=== PATIENT | male | born 1975 | race Caucasian/White ===

== ENCOUNTER 2023-11-13 09:22 | Inpatient (IN) ==
[2023-11-13] MEDS ORDERED: IOPAMIDOL 100 ML BOTTLE IV ONE (09:23)
[2023-11-13] MEDS ORDERED: IPRATROPIUM/ALBUTEROL 3 ML AMPUL.NEB NEB ONE (09:30)
[2023-11-13] MEDS ORDERED: methylPREDNISolone SOD SUCC 125 MG/2 ML VIAL IV ONE (09:32)
[2023-11-13 09:47] LABS: POC Calcium, Ionized 1.07 (1.16-1.32); POC Creatinine 1.5 (0.6-1.2); POC Potassium 4.6 (3.3-5.1)
[2023-11-13 10:08] LABS: Basophils # (Auto) 0.12 K/mcL (0.00-0.30); Basophils % (Auto) 0.7 % (0.0-2.0); Eosinophils # (Auto) 0.57 K/mcL (0.00-0.70); Eosinophils % (Auto) 3.3 % (0.0-7.0); Hematocrit 54.2 % (40.1-51.0); Hemoglobin 17.1 g/dL (13.7-17.5); Lymphocytes # (Auto) 2.72 K/mcL (1.50-4.80); Lymphocytes % (Auto) 15.5 % (15.5-49.0); Mean Cell Volume 88.1 fL (80.0-100.0); Mean Corpuscular HGB Conc 31.5 g/dL (31.0-36.0); Mean Platelet Volume 10.8 fL (8.8-12.5); Monocytes # (Auto) 0.86 K/mcL (0.10-0.90); Monocytes % (Auto) 4.9 % (1.0-12.0); Platelet Count 329 K/mcL (140-440); RBC 6.15 M/mcL (4.63-6.08); Red Cell Distribution Width 15.2 % (11.5-14.5); WBC 17.5 K/mcL (4.5-11.0)
[2023-11-13 10:50] LABS: ALT/SGPT 11 U/L (<40); AST/SGOT 27 U/L (<40); Albumin 3.9 gm/dL (3.2-5.2); Alkaline Phosphatase 111 U/L (39-117); Bilirubin,Direct 0.3 mg/dL (<0.3); Bilirubin,Total 0.9 mg/dL (0.1-1.0); Globulin 4.8 gm/dL (2.2-3.7)
[2023-11-13] MEDS ORDERED: LEVOFLOXACIN 750 MG/150 ML BAG IV ONE (13:00)
[2023-11-13 16:52] LABS: Appearance,Urine CLEAR (Clear); Bilirubin,Urine NEGATIVE (Negative); Color,Urine YELLOW; Culture Indicated,Urine No; Glucose,Urine (UA) NEGATIVE (Negative); Ketones,Urine TRACE mg/dL (Negative); Leukocyte Esterase,Urine NEGATIVE /uL (Negative); Nitrate,Urine NEGATIVE (Negative); PH,Urine 6.5 (5.0-9.0); Protein,Urine TRACE mg/dL (Negative); Specific Gravity,Urine <= 1.005 (1.000-1.035); Urine Blood NEGATIVE ery/mcL (Negative); Urine RBC 2 /hpf (0-3); Urine Squamous Epithelial Cell 1 /hpf (0-4); Urine WBC 1 /hpf (0-4); Urobilinogen,Urine Normal
[2023-11-13] MEDS ORDERED: BUPROPION 200 MG PO ONE (17:53)
[2023-11-13] MEDS ORDERED: MAGNESIUM SULFATE 2 GM/50 ML BAG IV PRN (20:40)
[2023-11-13] MEDS ORDERED: ONDANSETRON 4 MG/2 ML VIAL IV PRN (20:40)
[2023-11-13] MEDS ORDERED: 0.9 % SODIUM CHLORIDE 1,000 ML IV SCH (20:40)
[2023-11-13] MEDS ORDERED: SENNOSIDES 1 TABLET PO PRN (20:40)
[2023-11-13] MEDS ORDERED: IPRATROPIUM/ALBUTEROL 3 ML AMPUL.NEB NEB PRN (20:40)
[2023-11-13] MEDS ORDERED: POLYETHYLENE GLYCOL 3350 17 GM PACKET PO PRN (20:40)
[2023-11-13] MEDS ORDERED: POTASSIUM CHLORIDE 20 MEQ TABLET PO PRN ×2 (20:40)
[2023-11-13] MEDS ORDERED: POTASSIUM CHLORIDE 40 MEQ in DEXTROSE 5% IN WATER 500 ML IV PRN (20:40)
[2023-11-13] MEDS: BUDESONIDE 0.5 MG/2 ML AMPUL.NEB NEB SCH (22:06)
[2023-11-13] MEDS: CEFEPIME 2 GM VIAL IV SCH (22:14)
[2023-11-13] MEDS: methylPREDNISolone SOD SUCC 125 MG/2 ML VIAL IV SCH (22:17)
[2023-11-13] MEDS: FAMOTIDINE 20 MG TABLET PO SCH (22:17)
[2023-11-13] MEDS: DOCUSATE SODIUM 100 MG CAPSULE PO SCH (22:17)
[2023-11-13 22:23] LABS: Anisocytosis 1+ (None Seen); Band Neutrophils % 1 % (0-10); Basophils % (Manual) 1 % (0-2); Eosinophils % (Manual) 8 % (0-7); Lymphocytes % 20 % (15-49); Monocytes % (Manual) 4 % (1-12); Platelet Estimate NORMAL (Normal); RBC Morphology ABNORMAL (Normal); Segmented Neutrophils % 66 % (38-78)
[2023-11-13] MEDS: AZITHROMYCIN 500 MG in DEXTROSE 5% IN WATER 250 ML IV SCH (22:47)
[2023-11-14] MEDS: IPRATROPIUM/ALBUTEROL 3 ML AMPUL.NEB NEB SCH ×4 (01:19→19:44)
[2023-11-14] MEDS: ACETAMINOPHEN 325 MG TABLET PO PRN ×2 (01:58→14:15)
[2023-11-14] MEDS: methylPREDNISolone SOD SUCC 125 MG/2 ML VIAL IV SCH ×3 (05:39→22:11)
[2023-11-14 06:59] LABS: ALT/SGPT 5 U/L (<40); AST/SGOT 23 U/L (<40); Albumin/Globulin Ratio 0.8 (1.0-2.3); Alkaline Phosphatase 82 U/L (39-117); Bilirubin,Direct < 0.2 mg/dL (0-0.3); Bilirubin,Total 0.4 mg/dL (0.1-1.0); Blood Urea Nitrogen 18 mg/dL (6-20); Calcium 8.9 mg/dL (8.6-10.4); Carbon Dioxide 21 mmol/L (22-30); Chloride 101 mmol/L (96-108); Globulin 3.8 gm/dL (2.2-3.7); Glomerular Filtration Rate 92; Glucose 179 mg/dL (70-105); Lactate Dehydrogenase 315 U/L (135-225); Triglycerides 90 mg/dL (<150); Uric Acid 7.8 mg/dL (2.5-8.0)
[2023-11-14 07:32] LABS: Basophils # (Auto) 0.03 K/mcL (0.00-0.30); Basophils % (Auto) 0.2 % (0.0-2.0); Eosinophils # (Auto) 0 K/mcL (0.00-0.70); Eosinophils % (Auto) 0 % (0.0-7.0); Hematocrit 45.4 % (40.1-51.0); Hemoglobin 14.3 g/dL (13.7-17.5); Lymphocytes # (Auto) 0.94 K/mcL (1.50-4.80); Lymphocytes % (Auto) 6.8 % (15.5-49.0); Mean Corpuscular HGB Conc 31.5 g/dL (31.0-36.0); Mean Platelet Volume 10.6 fL (8.8-12.5); Monocytes # (Auto) 0.37 K/mcL (0.10-0.90); Monocytes % (Auto) 2.7 % (1.0-12.0); Neutrophils % (Auto) 89.8 % (38.0-78.0); Platelet Count 262 K/mcL (140-440); Red Cell Distribution Width 14.5 % (11.5-14.5); WBC 13.8 K/mcL (4.5-11.0)
[2023-11-14] MEDS ORDERED: HYDROcodone/APAP 10/325MG TABLET PO PRN (07:42)
[2023-11-14] MEDS: CEFEPIME 2 GM VIAL IV SCH ×2 (08:04→20:32)
[2023-11-14] MEDS: FAMOTIDINE 20 MG TABLET PO SCH ×2 (08:11→20:32)
[2023-11-14] MEDS: buPROPion 100 MG TAB.SR.12H PO SCH ×3 (08:11→20:32)
[2023-11-14] MEDS: ENOXAPARIN 40 MG/0.4 ML SYRINGE SQ SCH (08:11)
[2023-11-14] MEDS: DOCUSATE SODIUM 100 MG CAPSULE PO SCH ×2 (08:11→20:32)
[2023-11-14] MEDS: BUDESONIDE 0.5 MG/2 ML AMPUL.NEB NEB SCH ×2 (08:25→19:43)
[2023-11-14] MEDS ORDERED: TADALAFIL 2.5 MG PO SCH (09:00)
[2023-11-14] MEDS ORDERED: VANCOMYCIN PER PHARMACY IV SCH (11:19)
[2023-11-14] MEDS: VANCOMYCIN 1,250 MG in 0.9 % SODIUM CHLORIDE 500 ML IV SCH ×2 (11:57→23:30)
[2023-11-14] MEDS: AZITHROMYCIN 500 MG in DEXTROSE 5% IN WATER 250 ML IV SCH (13:54)
[2023-11-14] MEDS: ATENOLOL 50 MG TABLET PO SCH (23:30)
[2023-11-15] MEDS: IPRATROPIUM/ALBUTEROL 3 ML AMPUL.NEB NEB SCH ×4 (01:00→19:15)
[2023-11-15] MEDS: ACETAMINOPHEN 325 MG TABLET PO PRN ×2 (03:56→11:59)
[2023-11-15] MEDS: methylPREDNISolone SOD SUCC 125 MG/2 ML VIAL IV SCH ×2 (05:11→14:10)
[2023-11-15 05:56] LABS: C-Reactive Protein 3.88 mg/dL (0.03-0.80)
[2023-11-15 06:46] LABS: Basophils # (Auto) 0.02 K/mcL (0.00-0.30); Basophils % (Auto) 0.1 % (0.0-2.0); Eosinophils # (Auto) 0 K/mcL (0.00-0.70); Eosinophils % (Auto) 0 % (0.0-7.0); Hematocrit 45.3 % (40.1-51.0); Hemoglobin 14.1 g/dL (13.7-17.5); Lymphocytes # (Auto) 0.87 K/mcL (1.50-4.80); Lymphocytes % (Auto) 5.8 % (15.5-49.0); Mean Cell Volume 89.9 fL (80.0-100.0); Mean Corpuscular HGB Conc 31.1 g/dL (31.0-36.0); Mean Platelet Volume 10.5 fL (8.8-12.5); Monocytes # (Auto) 0.65 K/mcL (0.10-0.90); Monocytes % (Auto) 4.3 % (1.0-12.0); Neutrophils % (Auto) 89.3 % (38.0-78.0); Platelet Count 251 K/mcL (140-440); RBC 5.04 M/mcL (4.63-6.08); Red Cell Distribution Width 14.7 % (11.5-14.5); WBC 15.1 K/mcL (4.5-11.0)
[2023-11-15] MEDS: BUDESONIDE 0.5 MG/2 ML AMPUL.NEB NEB SCH ×2 (06:53→19:15)
[2023-11-15] MEDS: CEFEPIME 2 GM VIAL IV SCH ×2 (08:13→20:46)
[2023-11-15] MEDS: ENOXAPARIN 40 MG/0.4 ML SYRINGE SQ SCH (08:13)
[2023-11-15] MEDS: DOCUSATE SODIUM 100 MG CAPSULE PO SCH ×2 (08:13→20:42)
[2023-11-15] MEDS: buPROPion 100 MG TAB.SR.12H PO SCH ×3 (08:14→20:43)
[2023-11-15] MEDS: FAMOTIDINE 20 MG TABLET PO SCH ×3 (08:14→20:46)
[2023-11-15] MEDS ORDERED: FUROSEMIDE 20 MG/2 ML VIAL IV SCH ×2 (10:16→17:00)
[2023-11-15] MEDS: AZITHROMYCIN 500 MG in DEXTROSE 5% IN WATER 250 ML IV SCH (10:55)
[2023-11-15] MEDS: VANCOMYCIN 1,250 MG in 0.9 % SODIUM CHLORIDE 500 ML IV SCH (12:07)
[2023-11-15] MEDS: ATENOLOL 50 MG TABLET PO SCH (23:46)
[2023-11-16] MEDS: IPRATROPIUM/ALBUTEROL 3 ML AMPUL.NEB NEB SCH ×4 (01:21→17:47)
[2023-11-16] MEDS: BUDESONIDE 0.5 MG/2 ML AMPUL.NEB NEB SCH ×2 (06:30→17:48)
[2023-11-16 07:33] LABS: Basophils # (Auto) 0.01 K/mcL (0.00-0.30); Basophils % (Auto) 0.1 % (0.0-2.0); Eosinophils # (Auto) 0 K/mcL (0.00-0.70); Eosinophils % (Auto) 0 % (0.0-7.0); Hematocrit 43.9 % (40.1-51.0); Hemoglobin 13.7 g/dL (13.7-17.5); Lymphocytes # (Auto) 0.97 K/mcL (1.50-4.80); Lymphocytes % (Auto) 8.8 % (15.5-49.0); Mean Cell Volume 89.4 fL (80.0-100.0); Mean Corpuscular HGB Conc 31.2 g/dL (31.0-36.0); Mean Platelet Volume 10.2 fL (8.8-12.5); Monocytes # (Auto) 0.54 K/mcL (0.10-0.90); Monocytes % (Auto) 4.9 % (1.0-12.0); Neutrophils % (Auto) 85.7 % (38.0-78.0); Platelet Count 252 K/mcL (140-440); RBC 4.91 M/mcL (4.63-6.08); Red Cell Distribution Width 15.1 % (11.5-14.5); WBC 11.1 K/mcL (4.5-11.0)
[2023-11-16 08:03] LABS: ALT/SGPT 19 U/L (<40); AST/SGOT 30 U/L (<40); Albumin 3.4 gm/dL (3.2-5.2); Alkaline Phosphatase 87 U/L (39-117); Anion Gap 7.5 (8.0-16.0); Bilirubin,Direct < 0.2 mg/dL (0-0.3); Bilirubin,Total 0.5 mg/dL (0.1-1.0); Blood Urea Nitrogen 21 mg/dL (6-20); Calcium 9.1 mg/dL (8.6-10.4); Carbon Dioxide 30 mmol/L (22-30); Chloride 99 mmol/L (96-108); Globulin 3.3 gm/dL (2.2-3.7); Glomerular Filtration Rate 102; Glucose 150 mg/dL (70-105); Lactate Dehydrogenase 370 U/L (135-225); Phosphorous 3.6 mg/dL (2.5-4.5); Triglycerides 100 mg/dL (<150)
[2023-11-16] MEDS: DOCUSATE SODIUM 100 MG CAPSULE PO SCH ×2 (10:07→20:02)
[2023-11-16] MEDS: FAMOTIDINE 20 MG TABLET PO SCH ×2 (10:23→20:02)
[2023-11-16] MEDS: buPROPion 100 MG TAB.SR.12H PO SCH ×2 (10:30→20:02)
[2023-11-16] MEDS: CEFEPIME 2 GM VIAL IV SCH ×2 (10:30→21:20)
[2023-11-16] MEDS: ENOXAPARIN 40 MG/0.4 ML SYRINGE SQ SCH (10:31)
[2023-11-16] MEDS: ACETAMINOPHEN 325 MG TABLET PO PRN ×2 (10:33→20:01)
[2023-11-16] MEDS ORDERED: DIAZEPAM 5 MG TABLET PO PRN (18:46)
[2023-11-16 19:07] LABS: M. Pneumoniae IGG 915 U/mL (0-99); M. Pneumoniae IGM <770 U/mL (0-769)
[2023-11-16] MEDS: 0.9 % SODIUM CHLORIDE 10 ML SYRINGE IV SCH ×2 (19:35→21:22)
[2023-11-16] MEDS ORDERED: SUCRETS LOZENGE PO PRN (21:46)
[2023-11-16] MEDS ORDERED: BENZOCAINE/MENTHOL 1 LOZENGE PO ONE (21:49)
[2023-11-16] MEDS ORDERED: BENZOCAINE/MENTHOL 1 LOZENGE PO PRN (21:54)
[2023-11-17] MEDS: ATENOLOL 50 MG TABLET PO SCH (00:09)
[2023-11-17] MEDS: BUDESONIDE 0.5 MG/2 ML AMPUL.NEB NEB SCH ×2 (00:19→06:40)
[2023-11-17] MEDS: IPRATROPIUM/ALBUTEROL 3 ML AMPUL.NEB NEB SCH ×3 (00:23→12:52)
[2023-11-17] MEDS: 0.9 % SODIUM CHLORIDE 10 ML SYRINGE IV SCH (05:00)
[2023-11-17 07:54] LABS: Basophils # (Auto) 0.01 K/mcL (0.00-0.30); Basophils % (Auto) 0.1 % (0.0-2.0); Eosinophils # (Auto) 0 K/mcL (0.00-0.70); Eosinophils % (Auto) 0 % (0.0-7.0); Hematocrit 45.4 % (40.1-51.0); Hemoglobin 14.2 g/dL (13.7-17.5); Lymphocytes # (Auto) 1.18 K/mcL (1.50-4.80); Lymphocytes % (Auto) 11.2 % (15.5-49.0); Mean Cell Volume 89.2 fL (80.0-100.0); Mean Corpuscular HGB Conc 31.3 g/dL (31.0-36.0); Mean Platelet Volume 9.9 fL (8.8-12.5); Monocytes # (Auto) 0.51 K/mcL (0.10-0.90); Monocytes % (Auto) 4.9 % (1.0-12.0); Neutrophils % (Auto) 83.1 % (38.0-78.0); Platelet Count 278 K/mcL (140-440); RBC 5.09 M/mcL (4.63-6.08); Red Cell Distribution Width 14.7 % (11.5-14.5); WBC 10.5 K/mcL (4.5-11.0)
[2023-11-17 08:20] LABS: ALT/SGPT 25 U/L (<40); AST/SGOT 27 U/L (<40); Albumin 3.3 gm/dL (3.2-5.2); Alkaline Phosphatase 84 U/L (39-117); Anion Gap 11.2 (8.0-16.0); Bilirubin,Direct 0.2 mg/dL (<0.3); Bilirubin,Total 0.6 mg/dL (0.1-1.0); Blood Urea Nitrogen 21 mg/dL (6-20); Carbon Dioxide 26 mmol/L (22-30); Chloride 100 mmol/L (96-108); Globulin 3.2 gm/dL (2.2-3.7); Glomerular Filtration Rate 109; Glucose 146 mg/dL (70-105); Lactate Dehydrogenase 347 U/L (135-225); Triglycerides 94 mg/dL (<150); Uric Acid 5.3 mg/dL (2.5-8.0)
[2023-11-17] MEDS: DOCUSATE SODIUM 100 MG CAPSULE PO SCH (09:23)
[2023-11-17] MEDS: FAMOTIDINE 20 MG TABLET PO SCH (09:43)
[2023-11-17] MEDS: ENOXAPARIN 40 MG/0.4 ML SYRINGE SQ SCH (10:19)
[2023-11-17] MEDS: CEFEPIME 2 GM VIAL IV SCH (10:19)
[2023-11-17] MEDS: buPROPion 100 MG TAB.SR.12H PO SCH (10:19)
== END 2023-11-17 14:07 | disposition short-term general hospital (02) | DRG 189 ==
LOC: ED 09:22 → ICU 20:34
PROVIDERS: ADMIT Internal Medicine; ATTEND Internal Medicine